=== PATIENT | male | born 1960 | race Caucasian/White ===

== ENCOUNTER 2016-06-30 04:48 | Emergency (ER) | payer SELFPAY ==
[~2016-06-30] VITALS: Ht 182.9 cm; Wt 105.0 kg
[~2016-06-30 04:48] MED LIST: CHLO.12%30 SSP; CLIN150 PO; DICL50TA2 PO
[2016-06-30 04:49] VITALS: BP 207/102; PULSE 84; RESP 20; TEMP 98.8; O2SAT 96
[2016-06-30] MEDS ORDERED: KETOROLAC TROMETHAMINE 60 MG/2 ML (IM) VIAL IM ONE (05:15)
[2016-06-30] MEDS ORDERED: LIDOCAINE HCL 2% 20 ML VIAL INFIL ONE (05:15)
[2016-06-30] MEDS ORDERED: BUPIVACAINE HCL PF 0.5% 10 ML VIAL INFIL ONE (05:15)
[2016-06-30] MEDS ORDERED: ULTR50TA5 PO (05:32)
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
[2016-06-30] MEDS ORDERED: IBUP-232 PO (05:35)
[2016-06-30] MEDS ORDERED: PENI500T PO (05:35)
[2016-06-30 05:43] VITALS: BP 195/90; PULSE 80; RESP 18; O2SAT 98
== END 2016-06-30 05:53 | disposition home or self-care (01) ==
LOC: NEPD 04:48
DX: K08.89 Other specified disorders of teeth and supporting structures (principal); K05.6 Periodontal disease, unspecified; I10 Essential (primary) hypertension; Z72.0 Tobacco use; Z87.39 Personal history of other diseases of the musculoskeletal system and connective tissue; Z87.09 Personal history of other diseases of the respiratory system; Z86.59 Personal history of other mental and behavioral disorders; Z86.79 Personal history of other diseases of the circulatory system; Z87.19 Personal history of other diseases of the digestive system; Z87.448 Personal history of other diseases of urinary system; Z86.69 Personal history of other diseases of the nervous system and sense organs
CPT/HCPCS: 64400; 96372; 99282; J1885